=== PATIENT | male | born 1985 | race Caucasian/White ===

== ENCOUNTER 2016-12-08 21:39 | Emergency (ER) | payer MEDICAID ==
[~2016-12-08] VITALS: Ht 170.2 cm; Wt 89.8 kg
[~2016-12-08 21:39] MED LIST: ADVIL200 M1 PO; IBUPROFEN800 MG PO; KEFLEX 500MG.500 MG PO; MEDROL 4MG. DOSE4 MG PO; MINOCYCLINE 10100 MG PO; PREDNISONE 20MG20 MG PO
--- NOTE | 2016-12-08 21:50 | Emergency Room Report ---
History of Present Illness Time Seen by [id number] Presenting Problem in Triage Pt arrived:Walked Presenting Problem:RIGHT UPPER TOOTH PAIN AND SWELLING Onset of symptoms date/time:12/05 or onset unknown for: Treatment Prior to Arrival: YESTERDAY AFTERNOON PT TOOK ONE UNKNOWN ABX - 500MG FROM [employer] Provided by:LAYPERSON Sepsis Risk Assessment: Temp: 100.3 B/P: 126/72 MAP: 90 Pulse: 98 Resp: 16 Recent fever? N Clinical Suspician of Infection? Y Mental Status: 1 - Regular (Normal Baseline) Sepsis Risk:Low Sepsis Risk Have you (or family members/close friends) recently traveled outside the [place]? N If Yes, where/when: Have you had exposure to infectious disease within the past month? N TB? Other? Specify: Comment Patient complains of a 2 day history of pain and swelling of his RIGHT maxillary anterior gums. His RIGHT central maxillary incisor is tender to touch. He is aware that he has severe dental decay of multiple teeth including that tooth. No fever. He does not have a dentist and he has not seen one since he was a child. ALLERGIES Coded Allergies: No Known Allergies (02/08/16) History Medical History General CAD? No Angina: No [place]: No Hypertension? No Hyperlipidemia? No CHF? No DVT? No PE? No COPD? No Asthma? Yes Anemia? No GERD? No Gastric ulcers? No GI Bleed? No Hernia? No Thyroid Problems? No Hypothyroidism? No CVA? No Seizures? No Diabetes? No Renal Insuffiency? No End Stage Renal Disease? No UTI? No Stones? No BPH? No GB Disease: No Nephritic Syndrome? No Asplenia? No Hepatitis? No Sickle Cell Disease? No Arthritis? No Migraines? No Cataracts? No Glaucoma? No MRSA? No HIV? No TB? No Anxiety? No Depression? No Cancer? No Immunization Hx DT/Tetanus 1-4 YRS Surgical Hx Previous Surgery?N Social History Alcohol Alcohol: Yes Review of Systems All Other Systems Reviewed and Negative Constitutional denies fever ENT see HPI, mouth pain, dental caries. Physical Exam Vital Signs Vital Signs Date Time Temp Pulse Resp B/P Pulse O2 O2 Flow FiO2 Ox Delivery Rate 12/08 2234 99.3 96 16 122/86 98 12/08 2233 99.3 96 16 122/86 98 12/08 2151 100.3 98 16 126/72 99 General Appearance normal appearance Ear, Nose, Throat Poor dentition with numerous dental caries. Central maxillary incisors are severely decayed. RIGHT central maxillary incisor is tender to percussion. There is erythema of the gingiva of the RIGHT maxillary central incisor, lateral incisor, and canine, but no abscess is visible., airways patent. No stridor or drooling. No submandibular swelling. No sublingual swelling or elevation of the tongue. Respiratory Status No: respiratory distress. 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 Yes Geraldo was queried for this patient? Yes Comment [id number] 0 rxs. Results/Orders Current Medication Orders Sig/Don Start time Last Medication Dose Route Stop Time Status Admin Acetaminophen/ 1 FERDINAND ONCE ONE 12/080 DC 12/08 Codeine Phosphate PO 12/088 Clindamycin HCl 300 MG ONCE ONE 12/08 2229 DC 12/08 PO 12/08 Ibuprofen 800 MG ONCE ONE 12/08 2229 DC / PO 12/08 2230 2228 Acetaminophen/ 0 .STK-MED ONE 12/08 2226 DC Codeine Phosphate PO Ibuprofen 0 .STK-MED ONE 12/08 2226 DC PO Clindamycin HCl 0 .STK-MED ONE 12/08 2225 DC PO Orders Procedure Date/time Status GEN NSG/PT REQ (NOT FOR MEDS!) 12/08 2218 Active Departure Departure Disposition DC Home or Self Care(routine) Clinical Impression Primary Impression: Infected dental caries Condition STABLE Referrals VINAY MERIDA Patient Instructions DI for Tooth Abscess Additional Instructions Additional instructions for DENTAL PROBLEMS: See a dentist as soon as possible for further evaluation. Return immediately if you have an uncontrollable fever greater than 102 degrees, difficulty breathing or shortness of breath, persistent vomiting, or inability to swallow. Prescriptions Current Visit Scripts HYDROCODONE/ACETAMINOPHEN ([place] 5-325 Tablet) 1 TAB PO Q6HP PRN pain #6 TAB Clindamycin Hcl (Clindamycin 300MG) 300 MG PO QID #40 CAP Ibuprofen (Ibuprofen 800MG) 800 MG PO Q8HP PRN pain #15 TAB ED Critical Care Critical Care No at [id number]
--- NOTE | 2016-12-08 21:50 | Emergency Room Report ---
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 N Clinical Suspician of Infection? Y Mental Status: 1 - Regular (Normal Baseline) Sepsis Risk:Low Sepsis Risk Have you (or family members/close friends) recently traveled outside the [place]? N If Yes, where/when: Have you had exposure to infectious disease within the past month? N TB? Other? Specify: Comment Patient complains of a 2 day history of pain and swelling of his RIGHT maxillary anterior gums. His RIGHT central maxillary incisor is tender to touch. He is aware that he has severe dental decay of multiple teeth including that tooth. No fever. He does not have a dentist and he has not seen one since he was a child. ALLERGIES Coded Allergies: No Known Allergies (02/08/16) History Medical History General CAD? No Angina: No [place]: No Hypertension? No Hyperlipidemia? No CHF? No DVT? No PE? No COPD? No Asthma? Yes Anemia? No GERD? No Gastric ulcers? No GI Bleed? No Hernia? No Thyroid Problems? No Hypothyroidism? No CVA? No Seizures? No Diabetes? No Renal Insuffiency? No End Stage Renal Disease? No UTI? No Stones? No BPH? No GB Disease: No Nephritic Syndrome? No Asplenia? No Hepatitis? No Sickle Cell Disease? No Arthritis? No Migraines? No Cataracts? No Glaucoma? No MRSA? No HIV? No TB? No Anxiety? No Depression? No Cancer? No Immunization Hx DT/Tetanus 1-4 YRS Surgical Hx Previous Surgery?N Social History Alcohol Alcohol: Yes Review of Systems All Other Systems Reviewed and Negative Constitutional denies fever ENT see HPI, mouth pain, dental caries. Physical Exam Vital Signs Vital Signs Date Time Temp Pulse Resp B/P Pulse O2 O2 Flow FiO2 Ox Delivery Rate 12/08 2234 99.3 96 16 122/86 98 12/08 2233 99.3 96 16 122/86 98 12/08 2151 100.3 98 16 126/72 99 General Appearance normal appearance Ear, Nose, Throat Poor dentition with numerous dental caries. Central maxillary incisors are severely decayed. RIGHT central maxillary incisor is tender to percussion. There is erythema of the gingiva of the RIGHT maxillary central incisor, lateral incisor, and canine, but no abscess is visible., airways patent. No stridor or drooling. No submandibular swelling. No sublingual swelling or elevation of the tongue. Respiratory Status No: respiratory distress. 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 Yes Geraldo was queried for this patient? Yes Comment [id number] 0 rxs. Results/Orders Current Medication Orders Sig/Don Start time Last Medication Dose Route Stop Time Status Admin Acetaminophen/ 1 FERDINAND ONCE ONE 12/080 DC 12/08 Codeine Phosphate PO 12/088 Clindamycin HCl 300 MG ONCE ONE 12/08 2229 DC 12/08 PO 12/08 Ibuprofen 800 MG ONCE ONE 12/08 2229 DC / PO 12/08 2230 2228 Acetaminophen/ 0 .STK-MED ONE 12/08 2226 DC Codeine Phosphate PO Ibuprofen 0 .STK-MED ONE 12/08 2226 DC PO Clindamycin HCl 0 .STK-MED ONE 12/08 2225 DC PO Orders Procedure Date/time Status GEN NSG/PT REQ (NOT FOR MEDS!) 12/08 2218 Active Departure Departure Disposition DC Home or Self Care(routine) Clinical Impression Primary Impression: Infected dental caries Condition STABLE Referrals VINAY MERIDA Patient Instructions DI for Tooth Abscess Additional Instructions Additional instructions for DENTAL PROBLEMS: See a dentist as soon as possible for further evaluation. Return immediately if you have an uncontrollable fever greater than 102 degrees, difficulty breathing or shortness of breath, persistent vomiting, or inability to swallow. Prescriptions Current Visit Scripts HYDROCODONE/ACETAMINOPHEN ([place] 5-325 Tablet) 1 TAB PO Q6HP PRN pain #6 TAB Clindamycin Hcl (Clindamycin 300MG) 300 MG PO QID #40 CAP Ibuprofen (Ibuprofen 800MG) 800 MG PO Q8HP PRN pain #15 TAB ED Critical Care Critical Care No at [id number]
[2016-12-08] MEDS ORDERED: NORCO 325 MG-51 TAB PO (22:20)
[2016-12-08] MEDS ORDERED: IBUPROFEN800 MG PO (22:20)
[2016-12-08] MEDS ORDERED: CLINDAMYCIN HC300 MG PO (22:20)
[2016-12-08 22:35] VITALS: BP 122/86
--- OUTSIDE RECORDS SUMMARY | 2016-12-10 22:40 | External Medical Summary Rpt ---
Author Author ALYSE Address Unknown Phone [email or web address] Purpose Continuity of Care Document - through 2016 Problems Code Diagnosis DOS Provider Status K02.9 DENTAL CARIES, UNSPECIFIED T14.8 OTHER INJURY OF UNSPECIFIED BODY REGION
--- OUTSIDE RECORDS SUMMARY | 2016-12-10 22:40 | External Medical Summary Rpt ---
Author Author [employer] Organization [employer] Address Unknown Phone Unavailable Purpose Continuity of Care Document - through 2016
--- OUTSIDE RECORDS SUMMARY | 2016-12-10 22:40 | External Medical Summary Rpt ---
Demographics Preferred Language Upper Sorbian Marital Status Unknown Sikhism Affiliation Unknown Race Unknown Ethnic Group Unknown Author Author , ALYSE CULLEN Address Unknown Phone Immunization Unable to retrieve immunization data due to connection failure with Immunization Registry. Please try again later.
--- OUTSIDE RECORDS SUMMARY | 2016-12-10 22:40 | External Medical Summary Rpt ---
Demographics Preferred Language Mongolian Marital Status Unknown Hoahaoism Affiliation Unknown Race Unknown Ethnic Group Unknown Author Author , ALYSE CULLEN Address Unknown Phone Immunization Unable to retrieve immunization data due to connection failure with Immunization Registry. Please try again later.
--- OUTSIDE RECORDS SUMMARY | 2016-12-10 22:40 | External Medical Summary Rpt ---
Author Author ALYSE Address Unknown Phone [email or web address] Purpose Continuity of Care Document - through 2016 Problems Code Diagnosis DOS Provider Status K02.9 DENTAL CARIES, UNSPECIFIED T14.8 OTHER INJURY OF UNSPECIFIED BODY REGION
== END 2016-12-08 22:36 | disposition home or self-care (01) ==
LOC: ER 21:39
DX: K02.9 Dental caries, unspecified (principal)